=== PATIENT | male | born 1955 | race African-American/Black ===

== ENCOUNTER 2018-06-14 17:28 | Inpatient (IN) | payer MEDICARE ==
[2018-06-14] VITALS (7 sets, daily range): BP systolic 140–180; BP diastolic 64–85
[~2018-06-14] VITALS: Ht 188 cm; Wt 148.3 kg
[2018-06-14] MEDS ORDERED: BISACODYL 10 MG SUPP.RECT. PR PRN (21:45)
[2018-06-14] MEDS ORDERED: ONDANSETRON PF 4 MG/2 ML VIAL. IV PRN (22:00)
[2018-06-14] MEDS ORDERED: DEXTROSE 50% 25 GM / 50ML DISP.SYRIN. IV PRN (22:00)
[2018-06-14] MEDS ORDERED: LACTULOSE 20 GM/30 ML SOLUTION. PO PRN (22:00)
[2018-06-14] MEDS: ACETAMINOPHEN 325 MG TABLET. PO PRN (23:53)
[2018-06-14] MEDS: INSULIN GLARGINE 300 UNITS/3 ML INSULN.PEN. SQ SCH (23:54)
[2018-06-15] VITALS (21 sets, daily range): BP systolic 119–180; BP diastolic 64–99
[2018-06-15 05:20] LABS: BASO # 0.1 x10^3/uL (0.0-0.2); BASO % 1 % (0-3); EOS # 0.1 x10^3/uL (0.0-0.7); EOS % 3 % (0-3); HEMATOCRIT 32.2 % (39.0-53.0); HEMOGLOBIN 10.6 g/dL (13.0-17.5); LYMPH # 0.6 x10^3/uL (1.0-4.8); LYMPH % 13 % (24-48); MEAN CORPUSCULAR HEMOGLOBIN 29 pg (25-35); MEAN CORPUSCULAR HGB CONC 33 g/dL (31-37); MEAN CORPUSCULAR VOLUME 88 fL (79-100); MONO # 0.4 x10^3/uL (0.0-1.1); MONO % 9 % (0-9); NEUT # 3.6 x10^3uL (1.8-7.7); NEUT % 74 % (31-73); PLATELET COUNT 133 x10^3/uL (140-400); RED BLOOD COUNT 3.65 x10^6/uL (4.30-5.70); RED CELL DISTRIBUTION WIDTH 16.2 % (11.5-14.5); WHITE BLOOD COUNT 4.9 x10^3/uL (4.0-11.0)
[2018-06-15 05:35] LABS: PROTHROMBIN TIME PATIENT 13.5 SEC (11.7-14.0)
[2018-06-15 05:50] LABS: CALCIUM 8.2 mg/dL (8.5-10.1); CREATININE 12.9 mg/dL (0.7-1.3); GFR 4.8; POTASSIUM 4.9 mmol/L (3.5-5.1)
[2018-06-15] MEDS: INSULIN LISPRO 300 UNITS/3 ML INSULN.PEN. SQ SCH ×3 (08:00→17:00)
[2018-06-15] MEDS: SENNOSIDES/DOCUSATE 8.6/50MG TABLET. PO SCH ×2 (08:41→21:00)
[2018-06-15] MEDS: ACETAMINOPHEN 325 MG TABLET. PO PRN (08:41)
[2018-06-15] MEDS ORDERED: CARV6.2511 PO (09:12)
[2018-06-15] MEDS ORDERED: ASPI-630 PO (09:12)
[2018-06-15] MEDS ORDERED: ATOR10TA60 PO (09:12)
[2018-06-15] MEDS ORDERED: LOSA25TA5 PO (09:12)
[2018-06-15] MEDS ORDERED: CALC200T3 PO (09:12)
[2018-06-15] MEDS ORDERED: ALLO100T PO (09:12)
--- NOTE | 2018-06-15 11:57 | HP ---
ADMIT DATE: 06/14/2018 CHIEF COMPLAINT: Headache. HISTORY OF PRESENT ILLNESS: The patient is a pleasant middle-aged male, who presented to the ER last night with headache at [facility]. They did a CAT scan there, it showed a subdural hematoma. He has now been transferred here to our Intensive Care Unit where we have consulted Neurosurgery. He has some associated nausea. Moving makes it worse and it still makes him wary, describes it as agonizing. PAST MEDICAL HISTORY: Hypertension; hyperlipidemia; gout; end-stage renal disease, on dialysis. ALLERGIES: IV CONTRAST, METFORMIN, SULFAMETHOXAZOLE and TRIMETHOPRIM. FAMILY HISTORY: Hypertension. SOCIAL HISTORY: He is retired. He used to drive heavy equipment. He does not drink, smoke or take drugs. MEDICATIONS: Reviewed, please refer to the MRAD. He is on atorvastatin, Coreg, losartan, aspirin, calcium and allopurinol. REVIEW OF SYSTEMS: GENERAL: No history of weight change, weakness or fevers. SKIN: No bruising, hair changes or rashes. EYES: No blurred, double or loss of vision. NOSE AND THROAT: No history of nosebleeds, hoarseness or sore throat. HEART: No history of palpitations, chest pain or shortness of breath on exertion. LUNGS: Denies cough, hemoptysis, wheezing or shortness of breath. GASTROINTESTINAL: Denies changes in appetite, nausea, vomiting, diarrhea or constipation. GENITOURINARY: No history of frequency, urgency, hesitancy or nocturia. NEUROLOGIC: He complains of headache. PSYCHIATRIC: No history of panic, anxiety or depression. ENDOCRINE: No history of heat or cold intolerance, polyuria or polydipsia. EXTREMITIES: Denies muscle weakness, joint pain, pain on walking or stiffness. PHYSICAL EXAMINATION: VITAL SIGNS: Temperature afebrile, pulse 80, respirations 18, blood pressure 150/90. GENERAL: He is alert, cooperative, complaining of headache. HEART: Normal S1, S2. LUNGS: Clear to auscultation. ABDOMEN: Soft, positive bowel sounds. EXTREMITIES: 1+ edema. SKIN: No rash. ENDOCRINE: No thyromegaly. LYMPHATICS: No cervical nodes. HEMATOPOIETIC: No bruising. NEUROLOGICAL: He is moving all extremities. He does have a headache. Pupils are equally round and reactive to light and accommodation. PSYCHIATRIC: He is stable. LABORATORY DATA: Hemoglobin is 10.6. BUN is high at 57, creatinine 12.9. CT of the head shows a subdural hematoma. ASSESSMENT AND PLAN: A subdural hematoma in a middle-aged male who has end-stage renal disease, on dialysis. The patient has been admitted. We will consult Neurosurgery, ICU monitoring. Consult Nephrology for dialysis management. Home meds, frequent labs, PT, OT. PROGNOSIS: Guarded. SHIRLENE BELL DO DR: ITZEL/lisette JOB#: [id number] / [id number]
[2018-06-15] MEDS ORDERED: IV NORMAL SALINE 1000ML BAG 1,000 ML IV PRN ×2 (12:13)
[2018-06-15] MEDS ORDERED: DIALYSIS PATIENT. MC PRN ×2 (12:15)
--- NOTE | 2018-06-15 12:50 | PDOC2 ---
CONSULT Date of Consult Date of Consult DATE: 06/15/18 TIME: 12:46 Reason for Consult Reason for Consult: ESRD Referring Physician Referring Physician: SULAIMAN Identification/Chief Complaint Chief Complaint FALL Source Source: Chart review, Patient History of Present Illness Reason for Visit: THIS IS A 62 YR OLD WHO HAS ESRD AND IS ON HD FOR THE PAST 4 YEARS. ESRD DUE TO HTN PER PT. HAS A RIGHT FA AVF. HE FELL ON ICE AND HAS A SDH, CURRENTLY IN THE ICU. NO ACUTE COMPLAINTS NOTED. LABS ARE C/W ESRD Past Medical History Cardiovascular: HTN, Hyperlipidemia GI: Constipation Heme/Onc: Anemia NOS Rheumatologic: Gout Renal/: Chronic renal failure Endocrine: Hyperparathyroidism Past Surgical History Past Surgical History RIGHT FA RC AVF Current Medications Current Medications Current Medications Ondansetron HCl (Zofran) 4 mg PRN Q6HRS PRN IV NAUSEA/VOMITING; Start at 22:00 Acetaminophen (Tylenol) 650 mg PRN Q6HRS PRN PO Headaches, Temp > 101.5F Last administered on 06/15/18at 08:41; Start 06/14/18 at 21:45 Senna/Docusate Sodium (Senna Plus) 1 tab BID PO ; Start 06/15/18 at 09:00 Lactulose (Lactulose) 20 gm PRN Q12HR PRN PO CONSTIPATION; Start 06/14/18 at 22:00 Bisacodyl (Dulcolax Supp) 10 mg PRN DAILY PRN [place] CONSTIPATION; Start 06/14/18 at 21:45 Insulin Glargine (Lantus) 5 units QHS SQ Last administered on 06/14/18at 23:54 ; Start 06/14/18 at 22:15 Insulin Human Lispro (HumaLOG) 0-5 UNITS TIDWMEALS SQ ; Start 06/15/18 at 08:00 Dextrose (Dextrose 50%-Water Syringe) 12.5 gm PRN Q15MIN PRN IV SEE COMMENTS; Start 06/14/18 at 22:00 Sodium Chloride 1,000 ml @ 1,000 mls/hr Q1H PRN IV hypotension; Start at 12:13; Stop 06/15/18 at 18:12 Sodium Chloride 1,000 ml @ 400 mls/hr Q2H30M PRN IV PATENCY; Start 06/15/18 at 12:13; Stop 06/16/18 at 00:12 Info (PHARMACY MONITORING -- do not chart) 1 each PRN DAILY PRN MC SEE COMMENTS ; Start 06/15/18 at 12:15; Status UNV Info (PHARMACY MONITORING -- do not chart) 1 each PRN DAILY PRN MC SEE COMMENTS ; Start 06/15/18 at 12:15 Active Scripts Active Reported Tums (Calcium Carbonate) 200 Mg Tab.chew 600 Mg PO TIDWMEALS Aspirin 81 Mg Tab.chew 81 Mg PO DAILY Atorvastatin Calcium 10 Mg Tablet 10 Mg PO DAILY Carvedilol 6.25 Mg Tablet 6.25 Mg PO DAILY Losartan Potassium 25 Mg Tablet 25 Mg PO DAILY Allopurinol 100 Mg Tablet 100 Mg PO DAILY Allergies Allergies: Coded Allergies: Iodinated Contrast- Oral and IV Dye (Verified Allergy, Intermediate, 06/15) metformin (Verified Allergy, Intermediate, 06/15/18) sulfamethoxazole (Verified Allergy, Intermediate, 06/15/18) trimethoprim (Verified Allergy, Intermediate, 06/15/18) ROS Review of System FULL ROS NEG EXCEPT BELOW PSYCHOLOGICAL ROS: YES: Anxiety Eyes: Yes Decreased vision HEENT: YES: Heacaches Respiratory: YES: Cough Genitourinary: YES Other (ANURIA) Musculoskeletal: Yes Muscular Weakness Neurological: Yes Headaches, Yes Weakness Skin: Yes Dry Skin Physical Exam General: Alert, Oriented X3, Cooperative, No acute distress HEENT: Atraumatic, PERRLA Lungs: Clear to auscultation Heart: Regular rate, Normal S1, Normal S2, No murmurs Abdomen: Normal bowel sounds, Soft, No tenderness Extremities: Normal pulses, Other (RIGHT FA RC AVF WITH A GOOD THRILL AND BRUIT.) Skin: No breakdown Neuro: Normal speech, Cranial nerves 3-12 NL Psych/Mental Status: Mental status NL, Mood NL MUSCULOSKELETAL: No joint tenderness, No deformity, No swelling Vitals VITALS Vital Signs Date Time Temp Pulse Resp B/P (MAP) Pulse Ox O2 Delivery O2 Flow Rate FiO2 06/15/18 12:42 71 20 160/91 (114) 98 Nasal Cannula 2.0 06/15/18 11:00 98.4 98.4 Labs Labs Laboratory Tests Test 06/15/18 04:20 White Blood Count 4.9 x10^3/uL (4.0-11.0) Red Blood Count 3.65 x10^6/uL (4.30-5.70) Hemoglobin 10.6 g/dL (13.0-17.5) Hematocrit 32.2 % (39.0-53.0) Mean Corpuscular Volume 88 fL (79-100) Mean Corpuscular Hemoglobin 29 pg (25-35) Mean Corpuscular Hemoglobin Concent 33 g/dL (31-37) Red Cell Distribution Width 16.2 % (11.5-14.5) Platelet Count 133 x10^3/uL (140-400) Neutrophils (%) (Auto) 74 % (31-73) Lymphocytes (%) (Auto) 13 % (24-48) Monocytes (%) (Auto) 9 % (0-9) Eosinophils (%) (Auto) 3 % (0-3) Basophils (%) (Auto) 1 % (0-3) Neutrophils # (Auto) 3.6 x10^3uL (1.8-7.7) Lymphocytes # (Auto) 0.6 x10^3/uL (1.0-4.8) Monocytes # (Auto) 0.4 x10^3/uL (0.0-1.1) Eosinophils # (Auto) 0.1 x10^3/uL (0.0-0.7) Basophils # (Auto) 0.1 x10^3/uL (0.0-0.2) Prothrombin Time 13.5 SEC (11.7-14.0) Prothromb Time International Ratio 1.1 (0.8-1.1) Sodium Level 142 mmol/L (136-145) Potassium Level 4.9 mmol/L (3.5-5.1) Chloride Level 100 mmol/L (98-107) Carbon Dioxide Level 29 mmol/L (21-32) Anion Gap 13 (6-14) Blood Urea Nitrogen 57 mg/dL (8-26) Creatinine 12.9 mg/dL (0.7-1.3) Estimated GFR (Cockcroft-Gault) 4.8 Glucose Level 148 mg/dL (70-99) Calcium Level 8.2 mg/dL (8.5-10.1) Laboratory Tests Test 06/15/18 04:20 White Blood Count 4.9 x10^3/uL (4.0-11.0) Red Blood Count 3.65 x10^6/uL (4.30-5.70) Hemoglobin 10.6 g/dL (13.0-17.5) Hematocrit 32.2 % (39.0-53.0) Mean Corpuscular Volume 88 fL (79-100) Mean Corpuscular Hemoglobin 29 pg (25-35) Mean Corpuscular Hemoglobin Concent 33 g/dL (31-37) Red Cell Distribution Width 16.2 % (11.5-14.5) Platelet Count 133 x10^3/uL (140-400) Neutrophils (%) (Auto) 74 % (31-73) Lymphocytes (%) (Auto) 13 % (24-48) Monocytes (%) (Auto) 9 % (0-9) Eosinophils (%) (Auto) 3 % (0-3) Basophils (%) (Auto) 1 % (0-3) Neutrophils # (Auto) 3.6 x10^3uL (1.8-7.7) Lymphocytes # (Auto) 0.6 x10^3/uL (1.0-4.8) Monocytes # (Auto) 0.4 x10^3/uL (0.0-1.1) Eosinophils # (Auto) 0.1 x10^3/uL (0.0-0.7) Basophils # (Auto) 0.1 x10^3/uL (0.0-0.2) Prothrombin Time 13.5 SEC (11.7-14.0) Prothromb Time International Ratio 1.1 (0.8-1.1) Sodium Level 142 mmol/L (136-145) Potassium Level 4.9 mmol/L (3.5-5.1) Chloride Level 100 mmol/L (98-107) Carbon Dioxide Level 29 mmol/L (21-32) Anion Gap 13 (6-14) Blood Urea Nitrogen 57 mg/dL (8-26) Creatinine 12.9 mg/dL (0.7-1.3) Estimated GFR (Cockcroft-Gault) 4.8 Glucose Level 148 mg/dL (70-99) Calcium Level 8.2 mg/dL (8.5-10.1) Assessment/Plan Assessment/Plan IMP SDH HTN ANEMIA ESRD PLAN HD TODAY UF TO DW NEURO EVAL WILL FOLLOW ADITYA RUSSELL MD Jun 15, 2018 12:50
--- NOTE | 2018-06-15 15:50 | RAD ---
CT HEAD WITHOUT CONTRAST 06/15/2018 1:46 PM Indication: F/U SDH, PRIOR SCAN AT [facility] Comparison: CT head without contrast, yesterday Procedure: Multidetector CT imaging of the head was performed without the administration of contrast. Findings: Previously seen parafalcine subdural hemorrhage has decreased in the interim. Small areas of subarachnoid hemorrhage in the adjacent fissures in the left frontal lobe are also slightly less prominent. Ventricles and basilar cisterns are stable in configuration. No acute mass effect or midline shift is identified. No evidence of subacute territorial infarct is identified. Mild areas of scattered deep white matter hypoattenuation are similar likely reflecting the sequela of chronic small vessel disease. Chronic right cerebellar infarct is unchanged. No acute osseous changes are seen in the interim. IMPRESSION: Decreased prominence of left parafalcine probable subdural and subarachnoid hemorrhage. Otherwise stable exam CT DOSING PQRS STATEMENT: One or more of the following individualized dose reduction techniques were utilized for this examination: 1. Automated exposure control 2. Adjustment of the mA and/or kV according to patient size 3. Use of iterative reconstruction technique Electronically signed by: Gerhard Waggoner MD (06/15/2018 3:47 PM) [id number]
[2018-06-15] MEDS: CALCIUM CARBONATE 500 MG TAB.CHEW PO SCH (19:00)
[2018-06-15] MEDS: INSULIN GLARGINE 300 UNITS/3 ML INSULN.PEN. SQ SCH (21:52)
[2018-06-16] MEDS: ACETAMINOPHEN 325 MG TABLET. PO PRN (01:22)
[2018-06-16 03:03] VITALS: BP 102/81
[2018-06-16 05:13] LABS: BASO % 1 % (0-3); EOS # 0.2 x10^3/uL (0.0-0.7); EOS % 4 % (0-3); HEMATOCRIT 31.4 % (39.0-53.0); HEMOGLOBIN 10.4 g/dL (13.0-17.5); LYMPH # 0.6 x10^3/uL (1.0-4.8); LYMPH % 16 % (24-48); MEAN CORPUSCULAR HEMOGLOBIN 29 pg (25-35); MEAN CORPUSCULAR HGB CONC 33 g/dL (31-37); MEAN CORPUSCULAR VOLUME 89 fL (79-100); MONO # 0.4 x10^3/uL (0.0-1.1); MONO % 10 % (0-9); NEUT # 2.9 x10^3uL (1.8-7.7); NEUT % 69 % (31-73); PLATELET COUNT 128 x10^3/uL (140-400); RED BLOOD COUNT 3.53 x10^6/uL (4.30-5.70); WHITE BLOOD COUNT 4.2 x10^3/uL (4.0-11.0)
[2018-06-16 05:43] LABS: ALBUMIN 3.4 g/dL (3.4-5.0); CALCIUM 8.2 mg/dL (8.5-10.1); CREATININE 10.5 mg/dL (0.7-1.3); GFR 6.1; POTASSIUM 4.9 mmol/L (3.5-5.1); TOTAL BILIRUBIN 0.3 mg/dL (0.2-1.0); TOTAL PROTEIN 6.9 g/dL (6.4-8.2)
[2018-06-16 07:00] VITALS: BP 135/82
[2018-06-16] MEDS: INSULIN LISPRO 300 UNITS/3 ML INSULN.PEN. SQ SCH ×2 (08:00→11:43)
[2018-06-16] MEDS: CALCIUM CARBONATE 500 MG TAB.CHEW PO SCH ×2 (08:00→11:38)
[2018-06-16] MEDS ORDERED: ALLOPURINOL 100 MG TABLET. PO SCH (09:00)
[2018-06-16] MEDS ORDERED: ATORVASTATIN CALCIUM 10 MG TABLET. PO SCH (09:00)
[2018-06-16] MEDS ORDERED: CARVEDILOL 6.25 MG TABLET. PO SCH ×2 (09:00→17:00)
[2018-06-16] MEDS ORDERED: LOSARTAN POTASSIUM 25 MG TABLET. PO SCH (09:00)
[2018-06-16] MEDS ORDERED: ASPIRIN CHEWABLE 81 MG TABLET. PO SCH (09:00)
[2018-06-16] MEDS: SENNOSIDES/DOCUSATE 8.6/50MG TABLET. PO SCH (09:13)
--- NOTE | 2018-06-16 09:47 | PDOC ---
Provider Note Provider Note Late entry- patient seen and examined 06/15 at 1730 in ICU s/ p fall CT head with left parafalcine probable subdural and subarachnoid hemorrhage neuro intact ok to transfer to floor full consult to follow BREANN ASHTON MD Jun 16, 2018 09:47
--- NOTE | 2018-06-16 10:24 | PDOC ---
PROGRESS NOTES History of Present Illness History of Present Illness ASSESSMENT AND PLAN: subdural hematoma sec to fall end-stage renal disease, on dialysis. Morbid obesity admitted. Neurosurgery, FOLLOWING Consult Nephrology for dialysis Home meds, frequent labs, PT, OT. Vitals Vitals Vital Signs Date Time Temp Pulse Resp B/P (MAP) Pulse Ox O2 Delivery O2 Flow Rate FiO2 06/16/18 09:16 71 135/82 06/16/18 07:00 98.3 18 98 Nasal Cannula 2.0 98.3 Physical Exam General: Alert, Oriented X3, Cooperative, No acute distress Heart: Regular rate, Normal S1, Normal S2, No murmurs Lungs: Clear Abdomen: Normal bowel sounds, Soft, No tenderness Extremities: No clubbing, No cyanosis, No edema, Normal pulses, Other (RIGHT FA RC AVF WITH A GOOD THRILL AND BRUIT.) Skin: No breakdown Labs LABS Indication: F/U SDH, PRIOR SCAN AT [facility] Comparison: CT head without contrast, yesterday Procedure: Multidetector CT imaging of the head was performed without the administration of contrast. Findings: Previously seen parafalcine subdural hemorrhage has decreased in the interim. Small areas of subarachnoid hemorrhage in the adjacent fissures in the left frontal lobe are also slightly less prominent. Ventricles and basilar cisterns are stable in configuration. No acute mass effect or midline shift is identified. No evidence of subacute territorial infarct is identified. Mild areas of scattered deep white matter hypoattenuation are similar likely reflecting the sequela of chronic small vessel disease. Chronic right cerebellar infarct is unchanged. No acute osseous changes are seen in the interim. IMPRESSION: Decreased prominence of left parafalcine probable subdural and subarachnoid hemorrhage. Otherwise stable exam CT DOSING PQRS STATEMENT: One or more of the following individualized dose reduction techniques were utilized for this examination: 1. Automated exposure control 2. Adjustment of the mA and/or kV according to patient size 3. Use of iterative reconstruction technique Electronically signed by: Gerhard Waggoner MD (06/15/2018 3:47 PM) [id number] Laboratory Tests Test 06/15/18 12:49 06/15/18 17:27 06/16/18 04:45 06/16/18 07:44 Glucose (Fingerstick) 93 mg/dL (70-99) 101 mg/dL (70-99) 118 mg/dL (70-99) White Blood Count 4.2 x10^3/uL (4.0-11.0) Red Blood Count 3.53 x10^6/uL (4.30-5.70) Hemoglobin 10.4 g/dL (13.0-17.5) Hematocrit 31.4 % (39.0-53.0) Mean Corpuscular Volume 89 fL (79-100) Mean Corpuscular Hemoglobin 29 pg (25-35) Mean Corpuscular Hemoglobin Concent 33 g/dL (31-37) Red Cell Distribution Width 16.0 % (11.5-14.5) Platelet Count 128 x10^3/uL (140-400) Neutrophils (%) (Auto) 69 % (31-73) Lymphocytes (%) (Auto) 16 % (24-48) Monocytes (%) (Auto) 10 % (0-9) Eosinophils (%) (Auto) 4 % (0-3) Basophils (%) (Auto) 1 % (0-3) Neutrophils # (Auto) 2.9 x10^3uL (1.8-7.7) Lymphocytes # (Auto) 0.6 x10^3/uL (1.0-4.8) Monocytes # (Auto) 0.4 x10^3/uL (0.0-1.1) Eosinophils # (Auto) 0.2 x10^3/uL (0.0-0.7) Basophils # (Auto) 0.0 x10^3/uL (0.0-0.2) Sodium Level 141 mmol/L (136-145) Potassium Level 4.9 mmol/L (3.5-5.1) Chloride Level 100 mmol/L (98-107) Carbon Dioxide Level 31 mmol/L (21-32) Anion Gap 10 (6-14) Blood Urea Nitrogen 46 mg/dL (8-26) Creatinine 10.5 mg/dL (0.7-1.3) Estimated GFR (Cockcroft-Gault) 6.1 BUN/Creatinine Ratio 4 (6-20) Glucose Level 109 mg/dL (70-99) Calcium Level 8.2 mg/dL (8.5-10.1) Total Bilirubin 0.3 mg/dL (0.2-1.0) Aspartate Amino Transf (AST/SGOT) 12 U/L (15-37) Alanine Aminotransferase (ALT/SGPT) 12 U/L (16-63) Alkaline Phosphatase 49 U/L (46-116) Total Protein 6.9 g/dL (6.4-8.2) Albumin 3.4 g/dL (3.4-5.0) Albumin/Globulin Ratio 1.0 (1.0-1.7) Comment Review of Relevant I have reviewed the following items telma (where applicable) has been applied. Labs Laboratory Tests Test 06/14/18 21:30 06/14/18 23:43 06/15/18 04:20 06/15/18 07:45 Nasal Screen MRSA (PCR) Negative (Negative) Glucose (Fingerstick) 181 mg/dL (70-99) 121 mg/dL (70-99) White Blood Count 4.9 x10^3/uL (4.0-11.0) Red Blood Count 3.65 x10^6/uL (4.30-5.70) Hemoglobin 10.6 g/dL (13.0-17.5) Hematocrit 32.2 % (39.0-53.0) Mean Corpuscular Volume 88 fL (79-100) Mean Corpuscular Hemoglobin 29 pg (25-35) Mean Corpuscular Hemoglobin Concent 33 g/dL (31-37) Red Cell Distribution Width 16.2 % (11.5-14.5) Platelet Count 133 x10^3/uL (140-400) Neutrophils (%) (Auto) 74 % (31-73) Lymphocytes (%) (Auto) 13 % (24-48) Monocytes (%) (Auto) 9 % (0-9) Eosinophils (%) (Auto) 3 % (0-3) Basophils (%) (Auto) 1 % (0-3) Neutrophils # (Auto) 3.6 x10^3uL (1.8-7.7) Lymphocytes # (Auto) 0.6 x10^3/uL (1.0-4.8) Monocytes # (Auto) 0.4 x10^3/uL (0.0-1.1) Eosinophils # (Auto) 0.1 x10^3/uL (0.0-0.7) Basophils # (Auto) 0.1 x10^3/uL (0.0-0.2) Prothrombin Time 13.5 SEC (11.7-14.0) Prothromb Time International Ratio 1.1 (0.8-1.1) Sodium Level 142 mmol/L (136-145) Potassium Level 4.9 mmol/L (3.5-5.1) Chloride Level 100 mmol/L (98-107) Carbon Dioxide Level 29 mmol/L (21-32) Anion Gap 13 (6-14) Blood Urea Nitrogen 57 mg/dL (8-26) Creatinine 12.9 mg/dL (0.7-1.3) Estimated GFR (Cockcroft-Gault) 4.8 Glucose Level 148 mg/dL (70-99) Calcium Level 8.2 mg/dL (8.5-10.1) Test 06/15/18 12:49 06/15/18 17:27 06/16/18 04:45 06/16/18 07:44 Glucose (Fingerstick) 93 mg/dL (70-99) 101 mg/dL (70-99) 118 mg/dL (70-99) White Blood Count 4.2 x10^3/uL (4.0-11.0) Red Blood Count 3.53 x10^6/uL (4.30-5.70) Hemoglobin 10.4 g/dL (13.0-17.5) Hematocrit 31.4 % (39.0-53.0) Mean Corpuscular Volume 89 fL (79-100) Mean Corpuscular Hemoglobin 29 pg (25-35) Mean Corpuscular Hemoglobin Concent 33 g/dL (31-37) Red Cell Distribution Width 16.0 % (11.5-14.5) Platelet Count 128 x10^3/uL (140-400) Neutrophils (%) (Auto) 69 % (31-73) Lymphocytes (%) (Auto) 16 % (24-48) Monocytes (%) (Auto) 10 % (0-9) Eosinophils (%) (Auto) 4 % (0-3) Basophils (%) (Auto) 1 % (0-3) Neutrophils # (Auto) 2.9 x10^3uL (1.8-7.7) Lymphocytes # (Auto) 0.6 x10^3/uL (1.0-4.8) Monocytes # (Auto) 0.4 x10^3/uL (0.0-1.1) Eosinophils # (Auto) 0.2 x10^3/uL (0.0-0.7) Basophils # (Auto) 0.0 x10^3/uL (0.0-0.2) Sodium Level 141 mmol/L (136-145) Potassium Level 4.9 mmol/L (3.5-5.1) Chloride Level 100 mmol/L (98-107) Carbon Dioxide Level 31 mmol/L (21-32) Anion Gap 10 (6-14) Blood Urea Nitrogen 46 mg/dL (8-26) Creatinine 10.5 mg/dL (0.7-1.3) Estimated GFR (Cockcroft-Gault) 6.1 BUN/Creatinine Ratio 4 (6-20) Glucose Level 109 mg/dL (70-99) Calcium Level 8.2 mg/dL (8.5-10.1) Total Bilirubin 0.3 mg/dL (0.2-1.0) Aspartate Amino Transf (AST/SGOT) 12 U/L (15-37) Alanine Aminotransferase (ALT/SGPT) 12 U/L (16-63) Alkaline Phosphatase 49 U/L (46-116) Total Protein 6.9 g/dL (6.4-8.2) Albumin 3.4 g/dL (3.4-5.0) Albumin/Globulin Ratio 1.0 (1.0-1.7) Laboratory Tests Test 06/15/18 12:49 06/15/18 17:27 06/16/18 04:45 06/16/18 07:44 Glucose (Fingerstick) 93 mg/dL (70-99) 101 mg/dL (70-99) 118 mg/dL (70-99) White Blood Count 4.2 x10^3/uL (4.0-11.0) Red Blood Count 3.53 x10^6/uL (4.30-5.70) Hemoglobin 10.4 g/dL (13.0-17.5) Hematocrit 31.4 % (39.0-53.0) Mean Corpuscular Volume 89 fL (79-100) Mean Corpuscular Hemoglobin 29 pg (25-35) Mean Corpuscular Hemoglobin Concent 33 g/dL (31-37) Red Cell Distribution Width 16.0 % (11.5-14.5) Platelet Count 128 x10^3/uL (140-400) Neutrophils (%) (Auto) 69 % (31-73) Lymphocytes (%) (Auto) 16 % (24-48) Monocytes (%) (Auto) 10 % (0-9) Eosinophils (%) (Auto) 4 % (0-3) Basophils (%) (Auto) 1 % (0-3) Neutrophils # (Auto) 2.9 x10^3uL (1.8-7.7) Lymphocytes # (Auto) 0.6 x10^3/uL (1.0-4.8) Monocytes # (Auto) 0.4 x10^3/uL (0.0-1.1) Eosinophils # (Auto) 0.2 x10^3/uL (0.0-0.7) Basophils # (Auto) 0.0 x10^3/uL (0.0-0.2) Sodium Level 141 mmol/L (136-145) Potassium Level 4.9 mmol/L (3.5-5.1) Chloride Level 100 mmol/L (98-107) Carbon Dioxide Level 31 mmol/L (21-32) Anion Gap 10 (6-14) Blood Urea Nitrogen 46 mg/dL (8-26) Creatinine 10.5 mg/dL (0.7-1.3) Estimated GFR (Cockcroft-Gault) 6.1 BUN/Creatinine Ratio 4 (6-20) Glucose Level 109 mg/dL (70-99) Calcium Level 8.2 mg/dL (8.5-10.1) Total Bilirubin 0.3 mg/dL (0.2-1.0) Aspartate Amino Transf (AST/SGOT) 12 U/L (15-37) Alanine Aminotransferase (ALT/SGPT) 12 U/L (16-63) Alkaline Phosphatase 49 U/L (46-116) Total Protein 6.9 g/dL (6.4-8.2) Albumin 3.4 g/dL (3.4-5.0) Albumin/Globulin Ratio 1.0 (1.0-1.7) Medications Current Medications Ondansetron HCl (Zofran) 4 mg PRN Q6HRS PRN IV NAUSEA/VOMITING; Start at 22:00 Acetaminophen (Tylenol) 650 mg PRN Q6HRS PRN PO Headaches, Temp > 101.5F Last administered on 06/16/18at 01:22; Start 06/14/18 at 21:45 Senna/Docusate Sodium (Senna Plus) 1 tab BID PO Last administered on at 09:13; Start 06/15/18 at 09:00 Lactulose (Lactulose) 20 gm PRN Q12HR PRN PO CONSTIPATION; Start 06/14/18 at 22:00 Bisacodyl (Dulcolax Supp) 10 mg PRN DAILY PRN [place] CONSTIPATION; Start 06/14/18 at 21:45 Insulin Glargine (Lantus) 5 units QHS SQ Last administered on 06/15/18at 21:52 ; Start 06/14/18 at 22:15 Insulin Human Lispro (HumaLOG) 0-5 UNITS TIDWMEALS SQ ; Start 06/15/18 at 08:00 Dextrose (Dextrose 50%-Water Syringe) 12.5 gm PRN Q15MIN PRN IV SEE COMMENTS; Start 06/14/18 at 22:00 Sodium Chloride 1,000 ml @ 1,000 mls/hr Q1H PRN IV hypotension; Start at 12:13; Stop 06/15/18 at 18:12; Status DC Sodium Chloride 1,000 ml @ 400 mls/hr Q2H30M PRN IV PATENCY; Start 06/15/18 at 12:13; Stop 06/16/18 at 00:12; Status DC Info (PHARMACY MONITORING -- do not chart) 1 each PRN DAILY PRN MC SEE COMMENTS ; Start 06/15/18 at 12:15; Status UNV Info (PHARMACY MONITORING -- do not chart) 1 each PRN DAILY PRN MC SEE COMMENTS ; Start 06/15/18 at 12:15 Allopurinol (Zyloprim) 100 mg DAILY PO Last administered on 06/16/18at 09:12; Start 06/16/18 at 09:00 Aspirin (Children'S Aspirin) 81 mg DAILY PO Last administered on 06/16/18at 09: 12; Start 06/16/18 at 09:00 Atorvastatin Calcium (Lipitor) 10 mg DAILY PO Last administered on 06/16/18at 09:12; Start 06/16/18 at 09:00 Calcium Carbonate/ Glycine (Tums) 600 mg TIDWMEALS PO ; Start 06/15/18 at 19:00 Carvedilol (Coreg) 6.25 mg DAILY PO Last administered on 06/16/18at 09:16; Start 06/16/18 at 09:00 Losartan Potassium (Cozaar) 25 mg DAILY PO Last administered on 06/16/18at 09: 15; Start 06/16/18 at 09:00 Active Scripts Active Reported Tums (Calcium Carbonate) 200 Mg Tab.chew 600 Mg PO TIDWMEALS Aspirin 81 Mg Tab.chew 81 Mg PO DAILY Atorvastatin Calcium 10 Mg Tablet 10 Mg PO DAILY Carvedilol (Carvedilol) 6.25 Mg Tablet 6.25 Mg PO DAILY Losartan Potassium 25 Mg Tablet 25 Mg PO DAILY Allopurinol 100 Mg Tablet 100 Mg PO DAILY Vitals/I & O Vital Sign - Last 24 Hours 06/15/18 06/15/18 06/15/18 06/15/18 11:00 12:26 12:42 13:00 Temp 98.4 98.4 Pulse 72 71 74 Resp 14 20 14 B/P (MAP) 143/88 (106) 160/91 (114) 176/99 (124) Pulse Ox 98 98 96 O2 Delivery Nasal Cannula Nasal Cannula Nasal Cannula Nasal Cannula O2 Flow Rate 2.0 2.0 2.0 2.0 06/15/18 06/15/18 06/15/18 06/15/18 14:04 15:00 16:00 16:00 Temp 98.1 98.1 Pulse 72 71 72 Resp 17 12 11 B/P (MAP) 174/89 (117) 146/83 (104) 138/86 (103) Pulse Ox 97 96 98 O2 Delivery Nasal Cannula Nasal Cannula Nasal Cannula Nasal Cannula O2 Flow Rate 2.0 2.0 2.0 2.0 06/15/18 06/15/18 06/15/18 06/15/18 17:00 18:17 19:34 19:45 Temp 98.2 98.2 Pulse 75 74 80 Resp 14 19 18 B/P (MAP) 119/82 (94) 143/88 (106) 142/72 (95) Pulse Ox 98 100 97 O2 Delivery Nasal Cannula Nasal Cannula Nasal Cannula Nasal Cannula O2 Flow Rate 2.0 2.0 2.0 2.0 11/29/18 11/29/18 11/29/18 11/29/18 20:25 20:25 20:25 23:11 Temp 98.2 98.4 98.2 98.4 Pulse 84 85 Resp 20 18 B/P (MAP) 131/70 (90) 136/75 (95) Pulse Ox 99 96 O2 Delivery Nasal Cannula Nasal Cannula Nasal Cannula Nasal Cannula O2 Flow Rate 2.0 2.0 2.0 2.0 06/16/18 06/16/18 06/16/18 06/16/18 03:03 07:00 09:15 09:16 Temp 98.3 98.3 98.3 98.3 Pulse 77 71 71 71 Resp 18 18 B/P (MAP) 102/81 (88) 135/82 (99) 135/82 135/82 Pulse Ox 100 98 O2 Delivery Nasal Cannula Nasal Cannula O2 Flow Rate 2.0 2.0 Intake and Output 06/15/18 06/15/18 06/16/18 15:00 23:00 07:00 Intake Total 240 ml 680 ml Balance 240 ml 680 ml TORRES HESS MD Jun 16, 2018 10:24
[2018-06-16 11:00] VITALS: BP 143/80
--- NOTE | 2018-06-16 11:45 | PDOC ---
Renal-Progress Notes Subjective Notes Notes NO NEW COMPLAINTS History of Present Illness Hx of present illness STABLE Vitals Vitals Vital Signs Date Time Temp Pulse Resp B/P (MAP) Pulse Ox O2 Delivery O2 Flow Rate FiO2 06/16/18 11:00 98.4 71 18 143/80 (101) 100 Nasal Cannula 2.0 98.4 Weight Weight [ ] I.O. Intake and Output Intake and Output 06/16/18 07:00 Intake Total 920 ml Balance 920 ml Intake Oral 920 ml # Voids 1 Labs Labs Laboratory Tests Test 06/15/18 12:49 06/15/18 17:27 06/16/18 04:45 06/16/18 07:44 Glucose (Fingerstick) 93 mg/dL (70-99) 101 mg/dL (70-99) 118 mg/dL (70-99) White Blood Count 4.2 x10^3/uL (4.0-11.0) Red Blood Count 3.53 x10^6/uL (4.30-5.70) Hemoglobin 10.4 g/dL (13.0-17.5) Hematocrit 31.4 % (39.0-53.0) Mean Corpuscular Volume 89 fL (79-100) Mean Corpuscular Hemoglobin 29 pg (25-35) Mean Corpuscular Hemoglobin Concent 33 g/dL (31-37) Red Cell Distribution Width 16.0 % (11.5-14.5) Platelet Count 128 x10^3/uL (140-400) Neutrophils (%) (Auto) 69 % (31-73) Lymphocytes (%) (Auto) 16 % (24-48) Monocytes (%) (Auto) 10 % (0-9) Eosinophils (%) (Auto) 4 % (0-3) Basophils (%) (Auto) 1 % (0-3) Neutrophils # (Auto) 2.9 x10^3uL (1.8-7.7) Lymphocytes # (Auto) 0.6 x10^3/uL (1.0-4.8) Monocytes # (Auto) 0.4 x10^3/uL (0.0-1.1) Eosinophils # (Auto) 0.2 x10^3/uL (0.0-0.7) Basophils # (Auto) 0.0 x10^3/uL (0.0-0.2) Sodium Level 141 mmol/L (136-145) Potassium Level 4.9 mmol/L (3.5-5.1) Chloride Level 100 mmol/L (98-107) Carbon Dioxide Level 31 mmol/L (21-32) Anion Gap 10 (6-14) Blood Urea Nitrogen 46 mg/dL (8-26) Creatinine 10.5 mg/dL (0.7-1.3) Estimated GFR (Cockcroft-Gault) 6.1 BUN/Creatinine Ratio 4 (6-20) Glucose Level 109 mg/dL (70-99) Calcium Level 8.2 mg/dL (8.5-10.1) Total Bilirubin 0.3 mg/dL (0.2-1.0) Aspartate Amino Transf (AST/SGOT) 12 U/L (15-37) Alanine Aminotransferase (ALT/SGPT) 12 U/L (16-63) Alkaline Phosphatase 49 U/L (46-116) Total Protein 6.9 g/dL (6.4-8.2) Albumin 3.4 g/dL (3.4-5.0) Albumin/Globulin Ratio 1.0 (1.0-1.7) Test 06/16/18 11:29 Glucose (Fingerstick) 170 mg/dL (70-99) Review of Systems Constitutional: yes: weakness, alert, oriented Ears/Nose/Throat: Yes: no symptom reported Eyes: Yes: no symptom reported Pulmonary: Yes no symptom reported Cardiovascular: Yes no symptom reported Gastrointestional: Yes: no symptom reported Genitourinary: Yes: no symptom reported Musculoskeletal: Yes: no symptom reported Psychiatric/Neurological: Yes: headache Endocrine: Yes: no symptom reported Physical Exam General Appearance: no apparent distress Skin: warm Respiratory: bilateral CTA Heart: S1S2, RRR Abdomen: soft, bowel sounds present Genitourinary: bladder flat Extremities: pulses present Neurology: alert, oriented Assessment Assessment IMP SDH HTN ESRD PLAN NS FOLLOWING HD TOMORROW ADITYA RUSSELL MD Jun 16, 2018 11:45
--- NOTE | 2018-06-16 11:51 | PDOC ---
PROGRESS NOTES Subjective Subjective up in chair eating lunch feels good denies headache Objective Objective Vital Signs Date Time Temp Pulse Resp B/P (MAP) Pulse Ox O2 Delivery O2 Flow Rate FiO2 06/16/18 11:00 98.4 71 18 143/80 (101) 100 Nasal Cannula 2.0 98.4 Intake and Output 06/16/18 07:00 Intake Total 920 ml Balance 920 ml Intake Oral 920 ml # Voids 1 Physical Exam General: Alert, Oriented X3, Cooperative, No acute distress MUSCULOSKELETAL: Other (PARSONS) Plan Plan of Care left parafalcine probable subdural and subarachnoid hemorrhage may dc home from NS standpoint will make arrangements for f/u CT head in 7 to 10 days Comment Review of Relevant I have reviewed the following items telma (where applicable) has been applied. Labs Laboratory Tests Test 06/14/18 21:30 06/14/18 23:43 06/15/18 04:20 06/15/18 07:45 Nasal Screen MRSA (PCR) Negative (Negative) Glucose (Fingerstick) 181 mg/dL (70-99) 121 mg/dL (70-99) White Blood Count 4.9 x10^3/uL (4.0-11.0) Red Blood Count 3.65 x10^6/uL (4.30-5.70) Hemoglobin 10.6 g/dL (13.0-17.5) Hematocrit 32.2 % (39.0-53.0) Mean Corpuscular Volume 88 fL (79-100) Mean Corpuscular Hemoglobin 29 pg (25-35) Mean Corpuscular Hemoglobin Concent 33 g/dL (31-37) Red Cell Distribution Width 16.2 % (11.5-14.5) Platelet Count 133 x10^3/uL (140-400) Neutrophils (%) (Auto) 74 % (31-73) Lymphocytes (%) (Auto) 13 % (24-48) Monocytes (%) (Auto) 9 % (0-9) Eosinophils (%) (Auto) 3 % (0-3) Basophils (%) (Auto) 1 % (0-3) Neutrophils # (Auto) 3.6 x10^3uL (1.8-7.7) Lymphocytes # (Auto) 0.6 x10^3/uL (1.0-4.8) Monocytes # (Auto) 0.4 x10^3/uL (0.0-1.1) Eosinophils # (Auto) 0.1 x10^3/uL (0.0-0.7) Basophils # (Auto) 0.1 x10^3/uL (0.0-0.2) Prothrombin Time 13.5 SEC (11.7-14.0) Prothromb Time International Ratio 1.1 (0.8-1.1) Sodium Level 142 mmol/L (136-145) Potassium Level 4.9 mmol/L (3.5-5.1) Chloride Level 100 mmol/L (98-107) Carbon Dioxide Level 29 mmol/L (21-32) Anion Gap 13 (6-14) Blood Urea Nitrogen 57 mg/dL (8-26) Creatinine 12.9 mg/dL (0.7-1.3) Estimated GFR (Cockcroft-Gault) 4.8 Glucose Level 148 mg/dL (70-99) Calcium Level 8.2 mg/dL (8.5-10.1) Test 06/15/18 12:49 06/15/18 17:27 06/16/18 04:45 06/16/18 07:44 Glucose (Fingerstick) 93 mg/dL (70-99) 101 mg/dL (70-99) 118 mg/dL (70-99) White Blood Count 4.2 x10^3/uL (4.0-11.0) Red Blood Count 3.53 x10^6/uL (4.30-5.70) Hemoglobin 10.4 g/dL (13.0-17.5) Hematocrit 31.4 % (39.0-53.0) Mean Corpuscular Volume 89 fL (79-100) Mean Corpuscular Hemoglobin 29 pg (25-35) Mean Corpuscular Hemoglobin Concent 33 g/dL (31-37) Red Cell Distribution Width 16.0 % (11.5-14.5) Platelet Count 128 x10^3/uL (140-400) Neutrophils (%) (Auto) 69 % (31-73) Lymphocytes (%) (Auto) 16 % (24-48) Monocytes (%) (Auto) 10 % (0-9) Eosinophils (%) (Auto) 4 % (0-3) Basophils (%) (Auto) 1 % (0-3) Neutrophils # (Auto) 2.9 x10^3uL (1.8-7.7) Lymphocytes # (Auto) 0.6 x10^3/uL (1.0-4.8) Monocytes # (Auto) 0.4 x10^3/uL (0.0-1.1) Eosinophils # (Auto) 0.2 x10^3/uL (0.0-0.7) Basophils # (Auto) 0.0 x10^3/uL (0.0-0.2) Sodium Level 141 mmol/L (136-145) Potassium Level 4.9 mmol/L (3.5-5.1) Chloride Level 100 mmol/L (98-107) Carbon Dioxide Level 31 mmol/L (21-32) Anion Gap 10 (6-14) Blood Urea Nitrogen 46 mg/dL (8-26) Creatinine 10.5 mg/dL (0.7-1.3) Estimated GFR (Cockcroft-Gault) 6.1 BUN/Creatinine Ratio 4 (6-20) Glucose Level 109 mg/dL (70-99) Calcium Level 8.2 mg/dL (8.5-10.1) Total Bilirubin 0.3 mg/dL (0.2-1.0) Aspartate Amino Transf (AST/SGOT) 12 U/L (15-37) Alanine Aminotransferase (ALT/SGPT) 12 U/L (16-63) Alkaline Phosphatase 49 U/L (46-116) Total Protein 6.9 g/dL (6.4-8.2) Albumin 3.4 g/dL (3.4-5.0) Albumin/Globulin Ratio 1.0 (1.0-1.7) Test 06/16/18 11:29 Glucose (Fingerstick) 170 mg/dL (70-99) Laboratory Tests Test 06/15/18 12:49 06/15/18 17:27 06/16/18 04:45 06/16/18 07:44 Glucose (Fingerstick) 93 mg/dL (70-99) 101 mg/dL (70-99) 118 mg/dL (70-99) White Blood Count 4.2 x10^3/uL (4.0-11.0) Red Blood Count 3.53 x10^6/uL (4.30-5.70) Hemoglobin 10.4 g/dL (13.0-17.5) Hematocrit 31.4 % (39.0-53.0) Mean Corpuscular Volume 89 fL (79-100) Mean Corpuscular Hemoglobin 29 pg (25-35) Mean Corpuscular Hemoglobin Concent 33 g/dL (31-37) Red Cell Distribution Width 16.0 % (11.5-14.5) Platelet Count 128 x10^3/uL (140-400) Neutrophils (%) (Auto) 69 % (31-73) Lymphocytes (%) (Auto) 16 % (24-48) Monocytes (%) (Auto) 10 % (0-9) Eosinophils (%) (Auto) 4 % (0-3) Basophils (%) (Auto) 1 % (0-3) Neutrophils # (Auto) 2.9 x10^3uL (1.8-7.7) Lymphocytes # (Auto) 0.6 x10^3/uL (1.0-4.8) Monocytes # (Auto) 0.4 x10^3/uL (0.0-1.1) Eosinophils # (Auto) 0.2 x10^3/uL (0.0-0.7) Basophils # (Auto) 0.0 x10^3/uL (0.0-0.2) Sodium Level 141 mmol/L (136-145) Potassium Level 4.9 mmol/L (3.5-5.1) Chloride Level 100 mmol/L (98-107) Carbon Dioxide Level 31 mmol/L (21-32) Anion Gap 10 (6-14) Blood Urea Nitrogen 46 mg/dL (8-26) Creatinine 10.5 mg/dL (0.7-1.3) Estimated GFR (Cockcroft-Gault) 6.1 BUN/Creatinine Ratio 4 (6-20) Glucose Level 109 mg/dL (70-99) Calcium Level 8.2 mg/dL (8.5-10.1) Total Bilirubin 0.3 mg/dL (0.2-1.0) Aspartate Amino Transf (AST/SGOT) 12 U/L (15-37) Alanine Aminotransferase (ALT/SGPT) 12 U/L (16-63) Alkaline Phosphatase 49 U/L (46-116) Total Protein 6.9 g/dL (6.4-8.2) Albumin 3.4 g/dL (3.4-5.0) Albumin/Globulin Ratio 1.0 (1.0-1.7) Test 06/16/18 11:29 Glucose (Fingerstick) 170 mg/dL (70-99) Medications Current Medications Ondansetron HCl (Zofran) 4 mg PRN Q6HRS PRN IV NAUSEA/VOMITING; Start at 22:00 Acetaminophen (Tylenol) 650 mg PRN Q6HRS PRN PO Headaches, Temp > 101.5F Last administered on 06/16/18at 01:22; Start 06/14/18 at 21:45 Senna/Docusate Sodium (Senna Plus) 1 tab BID PO Last administered on at 09:13; Start 06/15/18 at 09:00 Lactulose (Lactulose) 20 gm PRN Q12HR PRN PO CONSTIPATION; Start 06/14/18 at 22:00 Bisacodyl (Dulcolax Supp) 10 mg PRN DAILY PRN DC CONSTIPATION; Start 06/14/18 at 21:45 Insulin Glargine (Lantus) 5 units QHS SQ Last administered on 06/15/18at 21:52 ; Start 06/14/18 at 22:15 Insulin Human Lispro (HumaLOG) 0-5 UNITS TIDWMEALS SQ Last administered on at 11:43; Start 06/15/18 at 08:00 Dextrose (Dextrose 50%-Water Syringe) 12.5 gm PRN Q15MIN PRN IV SEE COMMENTS; Start 06/14/18 at 22:00 Sodium Chloride 1,000 ml @ 1,000 mls/hr Q1H PRN IV hypotension; Start at 12:13; Stop 06/15/18 at 18:12; Status DC Sodium Chloride 1,000 ml @ 400 mls/hr Q2H30M PRN IV PATENCY; Start 06/15/18 at 12:13; Stop 06/16/18 at 00:12; Status DC Info (PHARMACY MONITORING -- do not chart) 1 each PRN DAILY PRN MC SEE COMMENTS ; Start 06/15/18 at 12:15; Status UNV Info (PHARMACY MONITORING -- do not chart) 1 each PRN DAILY PRN MC SEE COMMENTS ; Start 06/15/18 at 12:15 Allopurinol (Zyloprim) 100 mg DAILY PO Last administered on 06/16/18at 09:12; Start 06/16/18 at 09:00 Aspirin (Children'S Aspirin) 81 mg DAILY PO Last administered on 06/16/18at 09: 12; Start 06/16/18 at 09:00 Atorvastatin Calcium (Lipitor) 10 mg DAILY PO Last administered on 06/16/18at 09:12; Start 06/16/18 at 09:00 Calcium Carbonate/ Glycine (Tums) 600 mg TIDWMEALS PO Last administered on at 11:38; Start 06/15/18 at 19:00 Carvedilol (Coreg) 6.25 mg DAILY PO Last administered on 06/16/18at 09:16; Start 06/16/18 at 09:00 Losartan Potassium (Cozaar) 25 mg DAILY PO Last administered on 06/16/18at 09: 15; Start 06/16/18 at 09:00 Active Scripts Active Reported Tums (Calcium Carbonate) 200 Mg Tab.chew 600 Mg PO TIDWMEALS Aspirin 81 Mg Tab.chew 81 Mg PO DAILY Atorvastatin Calcium 10 Mg Tablet 10 Mg PO DAILY Carvedilol (Carvedilol) 6.25 Mg Tablet 6.25 Mg PO DAILY Losartan Potassium 25 Mg Tablet 25 Mg PO DAILY Allopurinol 100 Mg Tablet 100 Mg PO DAILY Vitals/I & O Vital Sign - Last 24 Hours 06/15/18 06/15/18 06/15/18 06/15/18 12:26 12:42 13:00 14:04 Pulse 71 74 72 Resp 20 14 17 B/P (MAP) 160/91 (114) 176/99 (124) 174/89 (117) Pulse Ox 98 96 97 O2 Delivery Nasal Cannula Nasal Cannula Nasal Cannula Nasal Cannula O2 Flow Rate 2.0 2.0 2.0 2.0 06/15/18 06/15/18 06/15/18 06/15/18 15:00 16:00 16:00 17:00 Temp 98.1 98.1 Pulse 71 72 75 Resp 12 11 14 B/P (MAP) 146/83 (104) 138/86 (103) 119/82 (94) Pulse Ox 96 98 98 O2 Delivery Nasal Cannula Nasal Cannula Nasal Cannula Nasal Cannula O2 Flow Rate 2.0 2.0 2.0 2.0 06/15/18 06/15/18 06/15/18 06/15/18 18:17 19:34 19:45 20:25 Temp 98.2 98.2 98.2 98.2 Pulse 74 80 84 Resp 19 18 20 B/P (MAP) 143/88 (106) 142/72 (95) 131/70 (90) Pulse Ox 100 97 99 O2 Delivery Nasal Cannula Nasal Cannula Nasal Cannula Nasal Cannula O2 Flow Rate 2.0 2.0 2.0 2.0 06/15/18 06/15/18 06/15/18 06/16/18 20:25 20:25 23:11 03:03 Temp 98.4 98.3 98.4 98.3 Pulse 85 77 Resp 18 18 B/P (MAP) 136/75 (95) 102/81 (88) Pulse Ox 96 100 O2 Delivery Nasal Cannula Nasal Cannula Nasal Cannula Nasal Cannula O2 Flow Rate 2.0 2.0 2.0 2.0 06/16/18 06/16/18 06/16/18 06/16/18 07:00 08:00 09:15 09:16 Temp 98.3 98.3 Pulse 71 71 71 Resp 18 B/P (MAP) 135/82 (99) 135/82 135/82 Pulse Ox 98 O2 Delivery Nasal Cannula Nasal Cannula O2 Flow Rate 2.0 2.0 06/16/18 11:00 Temp 98.4 98.4 Pulse 71 Resp 18 B/P (MAP) 143/80 (101) Pulse Ox 100 O2 Delivery Nasal Cannula O2 Flow Rate 2.0 Intake and Output 06/15/18 06/15/18 06/16/18 15:00 23:00 07:00 Intake Total 240 ml 680 ml Balance 240 ml 680 ml EULOGIO BUSTILLO APRN Jun 16, 2018 11:51
--- NOTE | 2018-06-16 12:13 | PDOC3 ---
Discharge Summary Date of Admission: Jun 15, 2018 Date of Discharge: Jun 16, 2018 Follow-Up: 3-5 days Admitting Diagnosis comment: DISCHARGE DX History of Present Illness ASSESSMENT AND PLAN: subdural hematoma sec to fall end-stage renal disease, on dialysis. Morbid obesity admitted. Neurosurgery, FOLLOWING Nephrology for dialysis TOMORROW Home meds, frequent labs, PT, OT. Vitals Vitals Vital Signs Date Time Temp Pulse Resp B/P (MAP) Pulse Ox O2 Delivery O2 Flow Rate FiO2 06/16/18 09:16 71 135/82 06/16/18 07:00 98.3 18 98 Nasal Cannula 2.0 98.3 Physical Exam General: Alert, Oriented X3, Cooperative, No acute distress Heart: Regular rate, Normal S1, Normal S2, No murmurs Lungs: Clear Abdomen: Normal bowel sounds, Soft, No tenderness Extremities: No clubbing, No cyanosis, No edema, Normal pulses, Other (RIGHT FA RC AVF WITH A GOOD THRILL AND BRUIT.) Skin: No breakdown ON ROOM AIR Labs LABS Indication: F/U SDH, PRIOR SCAN AT [facility] Comparison: CT head without contrast, yesterday Procedure: Multidetector CT imaging of the head was performed without the administration of contrast. Findings: Previously seen parafalcine subdural hemorrhage has decreased in the interim. Small areas of subarachnoid hemorrhage in the adjacent fissures in the left frontal lobe are also slightly less prominent. Ventricles and basilar cisterns are stable in configuration. No acute mass effect or midline shift is identified. No evidence of subacute territorial infarct is identified. Mild areas of scattered deep white matter hypoattenuation are similar likely reflecting the sequela of chronic small vessel disease. Chronic right cerebellar infarct is unchanged. No acute osseous changes are seen in the interim. IMPRESSION: Decreased prominence of left parafalcine probable subdural and subarachnoid hemorrhage. Otherwise stable exam Brief Hospital Course Mr. Choudhury is a 62 old [sex] who presented with SUBDURAL HEMATOMA ] CONDITION AT DISCHARGE: Improved Discharge Medications Current Medications Ondansetron HCl (Zofran) 4 mg PRN Q6HRS PRN IV NAUSEA/VOMITING; Start at 22:00 Acetaminophen (Tylenol) 650 mg PRN Q6HRS PRN PO Headaches, Temp > 101.5F Last administered on 06/16/18at 01:22; Start 06/14/18 at 21:45 Senna/Docusate Sodium (Senna Plus) 1 tab BID PO Last administered on at 09:13; Start 06/15/18 at 09:00 Lactulose (Lactulose) 20 gm PRN Q12HR PRN PO CONSTIPATION; Start 06/14/18 at 22:00 Bisacodyl (Dulcolax Supp) 10 mg PRN DAILY PRN ND CONSTIPATION; Start 06/14/18 at 21:45 Insulin Glargine (Lantus) 5 units QHS SQ Last administered on 06/15/18at 21:52 ; Start 06/14/18 at 22:15 Insulin Human Lispro (HumaLOG) 0-5 UNITS TIDWMEALS SQ Last administered on at 11:43; Start 06/15/18 at 08:00 Dextrose (Dextrose 50%-Water Syringe) 12.5 gm PRN Q15MIN PRN IV SEE COMMENTS; Start 06/14/18 at 22:00 Sodium Chloride 1,000 ml @ 1,000 mls/hr Q1H PRN IV hypotension; Start at 12:13; Stop 06/15/18 at 18:12; Status DC Sodium Chloride 1,000 ml @ 400 mls/hr Q2H30M PRN IV PATENCY; Start 06/15/18 at 12:13; Stop 06/16/18 at 00:12; Status DC Info (PHARMACY MONITORING -- do not chart) 1 each PRN DAILY PRN MC SEE COMMENTS ; Start 06/15/18 at 12:15; Status UNV Info (PHARMACY MONITORING -- do not chart) 1 each PRN DAILY PRN MC SEE COMMENTS ; Start 06/15/18 at 12:15 Allopurinol (Zyloprim) 100 mg DAILY PO Last administered on 06/16/18at 09:12; Start 06/16/18 at 09:00 Aspirin (Children'S Aspirin) 81 mg DAILY PO Last administered on 06/16/18at 09: 12; Start 06/16/18 at 09:00 Atorvastatin Calcium (Lipitor) 10 mg DAILY PO Last administered on 06/16/18at 09:12; Start 06/16/18 at 09:00 Calcium Carbonate/ Glycine (Tums) 600 mg TIDWMEALS PO Last administered on at 11:38; Start 06/15/18 at 19:00 Carvedilol (Coreg) 6.25 mg DAILY PO Last administered on 06/16/18at 09:16; Start 06/16/18 at 09:00 Losartan Potassium (Cozaar) 25 mg DAILY PO Last administered on 06/16/18at 09: 15; Start 06/16/18 at 09:00 Active Scripts Active Reported Tums (Calcium Carbonate) 200 Mg Tab.chew 600 Mg PO TIDWMEALS Aspirin 81 Mg Tab.chew 81 Mg PO DAILY Atorvastatin Calcium 10 Mg Tablet 10 Mg PO DAILY Carvedilol (Carvedilol) 6.25 Mg Tablet 6.25 Mg PO DAILY Losartan Potassium 25 Mg Tablet 25 Mg PO DAILY Allopurinol 100 Mg Tablet 100 Mg PO DAILY Vital Signs Vital Signs Date Time Temp Pulse Resp B/P (MAP) Pulse Ox O2 Delivery O2 Flow Rate FiO2 06/16/18 11:00 98.4 71 18 143/80 (101) 100 Nasal Cannula 2.0 98.4 Labs Laboratory Tests Test 06/14/18 21:30 06/14/18 23:43 06/15/18 04:20 06/15/18 07:45 Nasal Screen MRSA (PCR) Negative (Negative) Glucose (Fingerstick) 181 mg/dL (70-99) 121 mg/dL (70-99) White Blood Count 4.9 x10^3/uL (4.0-11.0) Red Blood Count 3.65 x10^6/uL (4.30-5.70) Hemoglobin 10.6 g/dL (13.0-17.5) Hematocrit 32.2 % (39.0-53.0) Mean Corpuscular Volume 88 fL (79-100) Mean Corpuscular Hemoglobin 29 pg (25-35) Mean Corpuscular Hemoglobin Concent 33 g/dL (31-37) Red Cell Distribution Width 16.2 % (11.5-14.5) Platelet Count 133 x10^3/uL (140-400) Neutrophils (%) (Auto) 74 % (31-73) Lymphocytes (%) (Auto) 13 % (24-48) Monocytes (%) (Auto) 9 % (0-9) Eosinophils (%) (Auto) 3 % (0-3) Basophils (%) (Auto) 1 % (0-3) Neutrophils # (Auto) 3.6 x10^3uL (1.8-7.7) Lymphocytes # (Auto) 0.6 x10^3/uL (1.0-4.8) Monocytes # (Auto) 0.4 x10^3/uL (0.0-1.1) Eosinophils # (Auto) 0.1 x10^3/uL (0.0-0.7) Basophils # (Auto) 0.1 x10^3/uL (0.0-0.2) Prothrombin Time 13.5 SEC (11.7-14.0) Prothromb Time International Ratio 1.1 (0.8-1.1) Sodium Level 142 mmol/L (136-145) Potassium Level 4.9 mmol/L (3.5-5.1) Chloride Level 100 mmol/L (98-107) Carbon Dioxide Level 29 mmol/L (21-32) Anion Gap 13 (6-14) Blood Urea Nitrogen 57 mg/dL (8-26) Creatinine 12.9 mg/dL (0.7-1.3) Estimated GFR (Cockcroft-Gault) 4.8 Glucose Level 148 mg/dL (70-99) Calcium Level 8.2 mg/dL (8.5-10.1) Test 06/15/18 12:49 06/15/18 17:27 06/16/18 04:45 06/16/18 07:44 Glucose (Fingerstick) 93 mg/dL (70-99) 101 mg/dL (70-99) 118 mg/dL (70-99) White Blood Count 4.2 x10^3/uL (4.0-11.0) Red Blood Count 3.53 x10^6/uL (4.30-5.70) Hemoglobin 10.4 g/dL (13.0-17.5) Hematocrit 31.4 % (39.0-53.0) Mean Corpuscular Volume 89 fL (79-100) Mean Corpuscular Hemoglobin 29 pg (25-35) Mean Corpuscular Hemoglobin Concent 33 g/dL (31-37) Red Cell Distribution Width 16.0 % (11.5-14.5) Platelet Count 128 x10^3/uL (140-400) Neutrophils (%) (Auto) 69 % (31-73) Lymphocytes (%) (Auto) 16 % (24-48) Monocytes (%) (Auto) 10 % (0-9) Eosinophils (%) (Auto) 4 % (0-3) Basophils (%) (Auto) 1 % (0-3) Neutrophils # (Auto) 2.9 x10^3uL (1.8-7.7) Lymphocytes # (Auto) 0.6 x10^3/uL (1.0-4.8) Monocytes # (Auto) 0.4 x10^3/uL (0.0-1.1) Eosinophils # (Auto) 0.2 x10^3/uL (0.0-0.7) Basophils # (Auto) 0.0 x10^3/uL (0.0-0.2) Sodium Level 141 mmol/L (136-145) Potassium Level 4.9 mmol/L (3.5-5.1) Chloride Level 100 mmol/L (98-107) Carbon Dioxide Level 31 mmol/L (21-32) Anion Gap 10 (6-14) Blood Urea Nitrogen 46 mg/dL (8-26) Creatinine 10.5 mg/dL (0.7-1.3) Estimated GFR (Cockcroft-Gault) 6.1 BUN/Creatinine Ratio 4 (6-20) Glucose Level 109 mg/dL (70-99) Calcium Level 8.2 mg/dL (8.5-10.1) Total Bilirubin 0.3 mg/dL (0.2-1.0) Aspartate Amino Transf (AST/SGOT) 12 U/L (15-37) Alanine Aminotransferase (ALT/SGPT) 12 U/L (16-63) Alkaline Phosphatase 49 U/L (46-116) Total Protein 6.9 g/dL (6.4-8.2) Albumin 3.4 g/dL (3.4-5.0) Albumin/Globulin Ratio 1.0 (1.0-1.7) Test 06/16/18 11:29 Glucose (Fingerstick) 170 mg/dL (70-99) Laboratory Tests Test 06/15/18 12:49 06/15/18 17:27 06/16/18 04:45 06/16/18 07:44 Glucose (Fingerstick) 93 mg/dL (70-99) 101 mg/dL (70-99) 118 mg/dL (70-99) White Blood Count 4.2 x10^3/uL (4.0-11.0) Red Blood Count 3.53 x10^6/uL (4.30-5.70) Hemoglobin 10.4 g/dL (13.0-17.5) Hematocrit 31.4 % (39.0-53.0) Mean Corpuscular Volume 89 fL (79-100) Mean Corpuscular Hemoglobin 29 pg (25-35) Mean Corpuscular Hemoglobin Concent 33 g/dL (31-37) Red Cell Distribution Width 16.0 % (11.5-14.5) Platelet Count 128 x10^3/uL (140-400) Neutrophils (%) (Auto) 69 % (31-73) Lymphocytes (%) (Auto) 16 % (24-48) Monocytes (%) (Auto) 10 % (0-9) Eosinophils (%) (Auto) 4 % (0-3) Basophils (%) (Auto) 1 % (0-3) Neutrophils # (Auto) 2.9 x10^3uL (1.8-7.7) Lymphocytes # (Auto) 0.6 x10^3/uL (1.0-4.8) Monocytes # (Auto) 0.4 x10^3/uL (0.0-1.1) Eosinophils # (Auto) 0.2 x10^3/uL (0.0-0.7) Basophils # (Auto) 0.0 x10^3/uL (0.0-0.2) Sodium Level 141 mmol/L (136-145) Potassium Level 4.9 mmol/L (3.5-5.1) Chloride Level 100 mmol/L (98-107) Carbon Dioxide Level 31 mmol/L (21-32) Anion Gap 10 (6-14) Blood Urea Nitrogen 46 mg/dL (8-26) Creatinine 10.5 mg/dL (0.7-1.3) Estimated GFR (Cockcroft-Gault) 6.1 BUN/Creatinine Ratio 4 (6-20) Glucose Level 109 mg/dL (70-99) Calcium Level 8.2 mg/dL (8.5-10.1) Total Bilirubin 0.3 mg/dL (0.2-1.0) Aspartate Amino Transf (AST/SGOT) 12 U/L (15-37) Alanine Aminotransferase (ALT/SGPT) 12 U/L (16-63) Alkaline Phosphatase 49 U/L (46-116) Total Protein 6.9 g/dL (6.4-8.2) Albumin 3.4 g/dL (3.4-5.0) Albumin/Globulin Ratio 1.0 (1.0-1.7) Test 06/16/18 11:29 Glucose (Fingerstick) 170 mg/dL (70-99) Allergies Allergies Coded Allergies Type Severity Reaction Last Updated Verified Iodinated Contrast- Oral and IV Dye Allergy Intermediate 06/15/18 Yes metformin Allergy Intermediate 06/15/18 Yes sulfamethoxazole Allergy Intermediate 06/15/18 Yes trimethoprim Allergy Intermediate 06/15/18 Yes Disposition/Orders: D/C to Home, D/C to Home w/ HH TORRES HESS MD Jun 16, 2018 12:12
--- NOTE | 2018-06-16 12:14 | DISCH ---
DISCHARGE WITH HOME HEALTH DISCHARGE INFORMATION: Discharge Date: Jun 16, 2018 Condition on Discharge: Stable CODE STATUS: Code Status: Full HOME HEALTH: Face to Face: I certify this patient is under my care and that I, or a nurse practitioner or physician's delivery driver assistant working with me, had a face to face encounter that meets the physician face to face encounter requirements with this patient on []. Medical Complications: Falls Jail For: Assess & Educate Safety, Medication Management Physical Therapy For: Evalulation/Treatment Occupational Therapy For: Evaluation/Treatment Speech Language Pathology For: Evaluation/Treatment Home Health Aide For: Self-care Pt Meets Homebound Status: Poor coordination w/ amb. POST DISCHARGE ORDERS: Activity Instructions for Disc: Activity as tolerated DIET AFTER DISCHARGE: Renal CHECKS AFTER DISCHARGE: Checks after discharge: Check blood press - daily TREATMENT/EQUIPMENT ORDERS: Adaptive Equipment Issued: [place] CERTIFICATION STATEMENT: Certification Statement: Certification Statement: Based on the above finding, I certify that this patient is confined to the home and needs intermittent assisted care, physical therapy and/or speech therapy, or continues to need occupational therapy.~ This patient is under my care, and I have initiated the establishment of the plan of care.~ This patient will be followed by myself or a community physician who will periodically review the plan of care. Home Meds Reported Medications Calcium Carbonate (TUMS) 200 Mg Tab.chew, 600 MG PO TIDWMEALS for renal, TAB.CHEW 06/15/18 Aspirin (ASPIRIN) 81 Mg Tab.chew, 81 MG PO DAILY for Heart, TAB.CHEW 06/15/18 Atorvastatin Calcium (ATORVASTATIN CALCIUM) 10 Mg Tablet, 10 MG PO DAILY for HLD 06/15/18 Carvedilol (CARVEDILOL ) 6.25 Mg Tablet, 6.25 MG PO DAILY for BP 06/15/18 Losartan Potassium (LOSARTAN POTASSIUM) 25 Mg Tablet, 25 MG PO DAILY for BP 06/15/18 Allopurinol (ALLOPURINOL) 100 Mg Tablet, 100 MG PO DAILY for gout 06/15/18 TORRES HESS MD Jun 16, 2018 12:14
== END 2018-06-16 14:00 | disposition home or self-care (01) | DRG 82 ==
LOC: 1 WEST ICU 21:22 → 4 NORTH 06-15 20:46
PROVIDERS: ADMIT Internal Medicine; ATTEND Internal Medicine
PROC: 5A1D70Z Performance of Urinary Filtration, Intermittent, Less than 6 Hours Per Day (ICD-10-PCS; principal; 2018-06-15)
DX: S06.5X9A Traumatic subdural hemorrhage with loss of consciousness of unspecified duration, initial encounter (principal); N18.6 End stage renal disease; I12.0 Hypertensive chronic kidney disease with stage 5 chronic kidney disease or end stage renal disease; E78.5 Hyperlipidemia, unspecified; M10.9 Gout, unspecified; D64.9 Anemia, unspecified; E66.01 Morbid (severe) obesity due to excess calories; W18.39XA Other fall on same level, initial encounter; E21.3 Hyperparathyroidism, unspecified; Z99.2 Dependence on renal dialysis; Z82.49 Family history of ischemic heart disease and other diseases of the circulatory system; Z68.41 Body mass index [BMI] 40.0-44.9, adult; Y93.89 Activity, other specified; Y92.89 Other specified places as the place of occurrence of the external cause; Y99.8 Other external cause status
CPT/HCPCS: 36415; 70450; 80048; 80053; 82962; 85025; 85610; 87641; 95811; J1815

== ENCOUNTER → 2018-06-23 | Outpatient (CLI) | payer MEDICARE ==
[2018-06-16 11:00] VITALS: BP 143/80
[~2018-06-23] MED LIST: ALLO100T PO; ASPI-630 PO; ATOR10TA60 PO; CALC200T3 PO; CARV6.2511 PO; LOSA25TA54 PO
--- NOTE | 2018-06-23 17:15 | RAD ---
CT scan of the head without contrast 06/23/2018 Clinical History: Follow-up subdural hematoma. Technique: Unenhanced, contiguous, 5 mm axial sections were obtained through the head. One or more of the following individualized dose reduction techniques were utilized for this study: 1. Automated exposure control. 2. Adjustment of the mA and/or kV according to patient size. 3. Use of iterative reconstruction technique. Findings: Comparison study is dated 06/15/2018. There is generalized parenchymal atrophy. Areas of decreased attenuation are seen within the periventricular and subcortical white matter of both cerebral hemispheres consistent with areas of small vessel ischemic disease. The small subdural hematoma seen within the posterior interhemispheric fissure and the left aspect of the tentorium on the previous study has resolved. No acute parenchymal abnormality is seen. No acute extra-axial fluid collection is noted. No skull fracture is seen. Impression: Interval resolution of the small subdural hematoma as outlined above. No acute intracranial abnormality is seen. Electronically signed by: William Padgett MD (06/23/2018 5:12 PM) [id number]
== END | disposition home or self-care (01) ==
LOC: CT 10:37
PROVIDERS: ATTEND Neurological Surgery
DX: Z08 Encounter for follow-up examination after completed treatment for malignant neoplasm (principal)
CPT/HCPCS: 70450